=== PATIENT | male | born 1990 | race Hispanic/Latino ===

== ENCOUNTER 2018-07-25 13:56 | Emergency (ER) | payer BC ==
[2018-07-25 14:39] LABS: #Eosinphils 0.1 thou/uL (0.0-0.7); #Lymphocytes 2.7 thou/uL (1.20-3.40); #Monocytes 0.5 thou/uL (0.11-0.59); #Neutrophils 4.2 thou/uL (1.40-6.50); %Basophils 0.5 % (0.0-1.0); %Eosinophils 1.5 % (0.0-10.0); %Lymphocytes 35.7 % (21.0-51.0); %Monocytes 6.7 % (0.0-10.0); %Neutrophils 55.7 % (42.0-75.0); Hemoglobin 15.8 g/dL (14.0-18.0); Mean Corpuscular HGB CONC 34.8 g/dL (32.0-36.0); Mean Corpuscular Hemoglobin 32.4 pg (27.0-31.0); Mean Platelet Volume 6.4 fL (7.4-10.4); Platelet Count 290 thou/uL (130-400); RBC Distribution Width 10.9 % (11.5-14.5); Red Blood Cell (RBC) Count 4.88 mill/uL (4.70-6.10); White Blood Cell (WBC) Count 7.5 thou/uL (4.8-10.8)
--- NOTE | 2018-07-25 15:00 | RAD ---
AP view chest. HISTORY: Shortness of breath. AP view chest obtained. The lungs are well aerated. No evidence of active intrathoracic disease seen. No evidence of effusions, pneumonia or pneumothorax seen. IMPRESSION: Unremarkable AP view chest.
[2018-07-25 15:03] LABS: ALT (SGPT) 26 U/L (8-55); AST (SGOT) 19 U/L (5-34); Albumin 4.4 g/dL (3.5-5.0); Alkaline Phosphatase 78 U/L (40-150); Anion Gap 9 mmol/L (10-20); BUN (Urea Nitrogen) 14 mg/dL (8.9-20.6); Bilirubin, Total 0.3 mg/dL (0.2-1.2); Calc. Creatinine Clearance 0 mL/min (70-130); Calcium 9.6 mg/dL (7.8-10.44); Carbon Dioxide 30 mmol/L (22-29); Chloride 103 mmol/L (98-107); Estimated GFR-MDRD Greater than 90; Glucose 105 mg/dL (70-105); Potassium 4.2 mmol/L (3.5-5.1); Protein, Total 7.4 g/dL (6.0-8.3); Sodium 138 mmol/L (136-145)
[2018-07-25 15:53] LABS: Bilirubin Negative (Negative); Blood, Urine Negative (Negative); Clarity CLEAR (Clear); Glucose, Urine (Dipstick) Negative (Negative); Leukocyte Negative (Negative); Nitrite Negative (Negative); Protein, Urine (Dipstick) Negative (Neg-Trace); Specific Gravity, Urine 1.007 (1.002-1.036); Urobilinogen 0.2 mg/dL (0.2-1.0); pH, Urine 6.5 (5.0-9.0)
== END 2018-07-25 17:21 | disposition home or self-care (01) ==
LOC: ERS 13:56
DX: I49.3 Ventricular premature depolarization (principal); R42 Dizziness and giddiness
CPT/HCPCS: 36415; 71045; 80053; 81003; 83735; 84484; 85025; 93005; 96360